=== PATIENT | female | born 1950 | race Caucasian/White ===

== ENCOUNTER 2022-12-10 17:03 | Emergency (ER) | payer MEDICARE, BC | END 2022-12-10 20:15 | disposition home or self-care (01) | LOC: JD.ED 17:03 | DX: S52.571A Other intraarticular fracture of lower end of right radius, initial encounter for closed fracture (principal); W18.30XA Fall on same level, unspecified, initial encounter | CPT/HCPCS: 29125; 73100-26-RT; 73100-RT; 99283 ==

== ENCOUNTER 2024-01-31 08:57 | Emergency (ER) | payer MEDICARE, BC ==
[2024-01-31 10:21] LABS: BASOPHILS PERCENT AUTO 0.8 % (0.0-1.0); EOSINOPHILS PERCENT AUTO 0.3 % (0.0-6.0); HEMATOCRIT 36.9 % (37.0-47.0); HEMOGLOBIN 12.6 gm/dl (12.0-16.0); IMMATURE GRAN ABSOLUTE AUTO 0.01 K/mm3 (0.00-0.05); IMMATURE GRAN PERCENT AUTO 0.3 % (0.0-0.4); LYMPHOCYTES ABSOLUTE AUTO 0.6 K/mm3 (1.0-4.8); LYMPHOCYTES PERCENT AUTO 15.9 % (24.0-44.0); MEAN CORPUSCULAR HEMOGLOBIN 31.5 pg (28.0-32.0); MEAN CORPUSCULAR HGB CONC 34.1 g/dl (32.0-36.0); MEAN CORPUSCULAR VOLUME 92.3 fl (83.0-99.0); MEAN PLATELET VOLUME 8.7 fl (9.4-12.3); MONOCYTES ABSOLUTE AUTO 0.3 K/mm3 (0.0-0.8); MONOCYTES PERCENT AUTO 8.1 % (0.0-8.0); NEUTROPHILS ABSOLUTE AUTO 2.8 K/mm3 (1.8-7.7); NEUTROPHILS PERCENT AUTO 74.6 % (41.0-71.0); PLATELET COUNT,PLT 148 K/mm3 (150-400); WHITE BLOOD CELL COUNT,WBC 3.71 K/mm3 (3.9-11.3)
[2024-01-31 10:54] LABS: ALANINE AMINOTRANSFERASE,ALT 18 U/L (14-59); ALBUMIN 3.5 g/dl (3.4-5.0); ALKALINE PHOSPHATASE 71 U/L (46-116); ANION GAP 10.1 (5-15); ASPARTATE AMNIOTRANSFERASE,AST 20 U/L (15-37); BILIRUBIN TOTAL 0.2 mg/dL (0.2-1.0); BLOOD UREA NITROGEN,BUN 10 mg/dL (7-18); BUN/CREATININE RATIO 11.1 (14-18); CARBON DIOXIDE,CO2 27 mEq/L (21-32); CHLORIDE,CL 99 mEq/L (98-107); CREATININE 0.9 mg/dL (0.55-1.02); EST CRCL DRUG DOSING (CG) 52.12 mL/min; ESTIMATED GFR 68 mL/min (>60); GLUCOSE RANDOM 103 mg/dL (70-99); POTASSIUM,K 4.1 mEq/L (3.5-5.1); PROTEIN TOTAL,TP 7.2 g/dl (6.4-8.2); SODIUM,NA 132 mEq/L (136-145)
[2024-01-31 10:57] LABS: TROPONIN I HIGH SENSITIVITY < 4 pg/mL (<=51)
[2024-01-31] MEDS: Sodium Chloride 0.9% 100 ML IV SCH (12:07)
[2024-01-31] MEDS: Iopamidol 755 Mg/ML 100 ML Bottle IVPUSH ONE (12:07)
[2024-01-31] MEDS: Sodium Chloride 0.9% 10 ML Syringe FLUSH PRN (12:07)
== END 2024-01-31 13:50 | disposition home or self-care (01) ==
LOC: JD.ED 08:57
DX: R07.89 Other chest pain (principal); R06.09 Other forms of dyspnea; Z90.710 Acquired absence of both cervix and uterus; Z79.899 Other long term (current) drug therapy
CPT/HCPCS: 36415; 71045; 71275; 80053; 83880; 84484; 85025; 85379; 86140; 93005; 99285; J3490; Q9967

== ENCOUNTER 2025-07-09 20:02 | Emergency (ER) | payer MEDICARE, BC ==
[2025-07-09] MEDS: cefTRIAXone 1 GM, Lidocaine 1% 2.1 ML IM ONE (22:34)
== END 2025-07-09 22:44 | disposition home or self-care (01) ==
LOC: JD.ED 20:02
DX: L03.115 Cellulitis of right lower limb (principal); Z79.899 Other long term (current) drug therapy; Z90.89 Acquired absence of other organs; R22.9 Localized swelling, mass and lump, unspecified
CPT/HCPCS: 36415; 85379; 93971; 96372; 99283; J0696; J2003